=== PATIENT | female | born 1960 | race Caucasian/White ===

== ENCOUNTER 2016-07-05 09:10 | Inpatient (IN) | payer MEDICAID, OTHER ==
[~2016-07-05] VITALS: Ht 165.1 cm; Wt 59.8 kg
[2016-07-05] MEDS ORDERED: SODIUM CHLORIDE 0.9% 1,000 ML IV ONE ×2 (09:15→11:45)
[2016-07-05 10:07] LABS: Basophils # (auto) 0 uL; Eosinophils # (auto) 0 uL; Hematocrit 41.8 % (36.0-46.0); Hemoglobin 13.8 g/dL (12.2-16.2); Lymphocytes # (auto) 1.5 uL; Lymphocytes % (auto) 7.6 % (10.0-50.0); Mean Corpuscular Hemoglobin 31.5 pg (28.0-32.0); Mean Corpuscular Volume 95.6 fL (80.0-100.0); Mean Platelet Volume 10.4 fL (7.4-10.4); Monocytes # (auto) 0.8 uL; Monocytes % (auto) 4.3 % (0.0-12.0); Neutrophils % (auto) 88.1 % (37.0-80.0); Platelet Count (auto) 185 10^3/uL (140-450); Red Cell Distribution Width 17.5 % (11.6-16.0); White Blood Cell 19.3 10^3/uL (4.4-10.8)
[2016-07-05 10:19] LABS: INR 0.94 (0.9-1.15); Partial Thromboplastin Time 25.5 sec (22.64-33.71); Prothrombin Time 10.2 sec (9.37-12.3)
[2016-07-05 10:33] LABS: Urine Bilirubin Negative (Negative); Urine Blood TRACE /uL (Negative); Urine Color Yellow (Yellow); Urine Hyaline Cast MANY /lpf (0 - 2); Urine Ketone Negative (Negative); Urine Nitrite Negative (Negative); Urine RBC <1 /hpf (0 - 4); Urine Squamous Epithelial Cell FEW /hpf (<5); Urine Urobilinogen Normal (Negative)
[2016-07-05 10:39] LABS: Urine Glucose 1+ mg/dL (Normal)
[2016-07-05 10:42] LABS: Albumin 3.4 g/dL (3.4-5.0); Alkaline Phosphatase 114 U/L (45-117); Aspartate Aminotransferase 44 U/L (15-37); BUN/Creatinine Ratio 8.5; Bilirubin, Total 0.4 mg/dL (0.2-1.0); Blood Urea Nitrogen 6 mg/dL (7-18); Calcium 8.1 mg/dL (8.5-10.1); Carbon Dioxide 25 mmol/L (21-32); GFR African American 110 mL/min; GFR Non-African American 91 mL/min; Glucose 151 mg/dL (74-106)
[2016-07-05 11:16] LABS: Anion Gap 8 (5-15); Chloride 105 mmol/L (98-107); Potassium 3.4 mmol/L (3.5-5.1); Sodium 138 mmol/L (136-145)
[2016-07-05] MEDS ORDERED: AZITHROMYCIN 500MG/D5W 250ML 250 ML IV ONE (11:45)
[2016-07-05] MEDS ORDERED: cefTRIAXone 1GM/50ML D5W 50 ML IV ONE (11:45)
[2016-07-05 12:38] LABS: B-Type Natriuretic Peptide 220.09 pg/mL (0-100); Temperature: 23.1 C (20.0-25.0)
[2016-07-05] MEDS ORDERED: LORazepam 2MG/ML-1ML VIAL IV ONE (13:15)
[2016-07-05] MEDS ORDERED: CHOL20006 PO (13:29)
[2016-07-05] MEDS ORDERED: METH500T6 PO (13:29)
[2016-07-05] MEDS ORDERED: METO25TA62 PO (13:29)
[2016-07-05] MEDS ORDERED: LOR05T PO (13:29)
[2016-07-05] MEDS ORDERED: ATOR40TA52 PO (13:29)
[2016-07-05] MEDS ORDERED: MORPHINE SULF INJ 2 MG/ML SYRINGE 1ML IV PRN (14:15)
[2016-07-05] MEDS ORDERED: NITROGLYCERIN 0.4 MG SL TAB SL PRN (14:15)
[2016-07-05] MEDS ORDERED: LORazepam 2MG/ML-1ML VIAL IV PRN ×2 (14:15→18:15)
[2016-07-05] MEDS: SODIUM CHLORIDE 0.9% 1,000 ML IV SCH ×2 (14:23→22:19)
[2016-07-05] MEDS ORDERED: THIAMINE HCL 100 MG/ML 2ML VIAL IV ONE (14:30)
[2016-07-05] MEDS ORDERED: FOLIC ACID 1 MG in D5W 5% 50 ML INJ ONE (14:45)
[2016-07-05 20:40] VITALS: BP 128/58
[2016-07-05 22:02] VITALS: BP 116/76
[2016-07-05] MEDS: METOPROLOL TARTRATE 25 MG TAB PO SCH (22:15)
[2016-07-06 05:04] VITALS: BP 101/68
[2016-07-06 06:05] LABS: Basophils # (auto) 0 uL; Basophils % (auto) 0.2 % (0.0-2.0); Eosinophils # (auto) 0 uL; Eosinophils % (auto) 0.1 % (0.0-7.0); Hematocrit 35.6 % (36.0-46.0); Hemoglobin 11.6 g/dL (12.2-16.2); Lymphocytes # (auto) 2.2 uL; Lymphocytes % (auto) 21.3 % (10.0-50.0); Mean Corpuscular Hemoglobin 31.4 pg (28.0-32.0); Mean Corpuscular Hgb Conc. 32.7 g/dL (32.0-36.0); Mean Platelet Volume 10.9 fL (7.4-10.4); Monocytes # (auto) 0.6 uL; Monocytes % (auto) 6.1 % (0.0-12.0); Neutrophils # (auto) 7.5 uL; Neutrophils % (auto) 72.3 % (37.0-80.0); Platelet Count (auto) 145 10^3/uL (140-450); Red Cell Distribution Width 16.4 % (11.6-16.0); White Blood Cell 10.4 10^3/uL (4.4-10.8)
[2016-07-06 06:20] LABS: BUN/Creatinine Ratio 7.3; Calcium 7.8 mg/dL (8.5-10.1); Potassium 3.3 mmol/L (3.5-5.1)
[2016-07-06 08:54] VITALS: BP 103/70
[2016-07-06] MEDS: cefTRIAXone 1GM/50ML D5W 50 ML IV SCH (09:18)
[2016-07-06] MEDS: METOPROLOL TARTRATE 25 MG TAB PO SCH ×2 (09:49→21:40)
[2016-07-06] MEDS ORDERED: FOLIC ACID 1 MG in D5W 5% 50 ML IV SCH (10:00)
[2016-07-06] MEDS: THIAMINE HCL 100 MG/ML 2ML VIAL IV SCH (10:39)
[2016-07-06] MEDS: AZITHROMYCIN 500MG/D5W 250ML 250 ML IV SCH (11:26)
[2016-07-06 12:41] VITALS: BP 129/84
[2016-07-06] MEDS: FOLIC ACID 1 MG in D5W 5% 50 ML INJ SCH (12:52)
[2016-07-06] MEDS ORDERED: POTASSIUM CHL 20 Meq TABLET PO ONE (15:15)
[2016-07-06 17:00] VITALS: BP 143/92
[2016-07-06] MEDS: SODIUM CHLORIDE 0.9% 1,000 ML IV SCH (17:28)
[2016-07-06 23:04] VITALS: BP 145/91
[2016-07-07 05:23] VITALS: BP 135/88
[2016-07-07 06:02] LABS: Basophils # (auto) 0 uL; Basophils % (auto) 0.3 % (0.0-2.0); Eosinophils # (auto) 0 uL; Eosinophils % (auto) 0.3 % (0.0-7.0); Hematocrit 36.5 % (36.0-46.0); Hemoglobin 12.2 g/dL (12.2-16.2); Lymphocytes # (auto) 2.3 uL; Lymphocytes % (auto) 25.7 % (10.0-50.0); Mean Corpuscular Hemoglobin 31.4 pg (28.0-32.0); Mean Corpuscular Hgb Conc. 33.3 g/dL (32.0-36.0); Mean Corpuscular Volume 94.2 fL (80.0-100.0); Mean Platelet Volume 10.6 fL (7.4-10.4); Monocytes # (auto) 0.7 uL; Monocytes % (auto) 7.9 % (0.0-12.0); Neutrophils # (auto) 5.9 uL; Neutrophils % (auto) 65.8 % (37.0-80.0); Platelet Count (auto) 153 10^3/uL (140-450); Red Cell Distribution Width 16.7 % (11.6-16.0)
[2016-07-07] MEDS: SODIUM CHLORIDE 0.9% 1,000 ML IV SCH ×2 (06:15→14:15)
[2016-07-07 06:35] LABS: BUN/Creatinine Ratio 9.6; Calcium 8.4 mg/dL (8.5-10.1); Magnesium 2.1 mg/dL (1.6-2.6); Potassium 3.3 mmol/L (3.5-5.1)
[2016-07-07 08:00] VITALS: BP 138/83
[2016-07-07] MEDS: cefTRIAXone 1GM/50ML D5W 50 ML IV SCH (09:00)
[2016-07-07] MEDS: AZITHROMYCIN 500MG/D5W 250ML 250 ML IV SCH (10:00)
[2016-07-07] MEDS: METOPROLOL TARTRATE 25 MG TAB PO SCH ×2 (11:25→21:43)
[2016-07-07] MEDS: THIAMINE HCL 100 MG/ML 2ML VIAL IV SCH (11:25)
[2016-07-07] MEDS: FOLIC ACID 1 MG in D5W 5% 50 ML INJ SCH (12:00)
[2016-07-07] MEDS ORDERED: POTASSIUM CHL 20 Meq TABLET PO ONE (13:30)
[2016-07-07] MEDS ORDERED: SACC250C PO (13:43)
[2016-07-07] MEDS ORDERED: LEVO750T3 PO (13:43)
[2016-07-07] MEDS ORDERED: ASPirin 81 mg TAB PO ONE (14:15)
[2016-07-07] MEDS ORDERED: PHENYTOIN IV DILANTIN 1,000 MG in SODIUM CHL 0.9% 250 ML IV ONE (20:30)
[2016-07-07] MEDS: ATORVASTATIN 20 MG TAB PO SCH (21:42)
[2016-07-07] MEDS: PHENYTOIN SODIUM 100 MG CAP PO SCH (21:42)
[2016-07-07 22:00] VITALS: BP 126/83
[2016-07-07] MEDS ORDERED: ATORVASTATIN 20 MG TAB PO SCH (22:00)
[2016-07-08] VITALS (8 sets, daily range): BP systolic 103–124; BP diastolic 64–75
[2016-07-08] MEDS: SODIUM CHLORIDE 0.9% 1,000 ML IV SCH (06:13)
[2016-07-08] MEDS: cefTRIAXone 1GM/50ML D5W 50 ML IV SCH (09:52)
[2016-07-08] MEDS: AZITHROMYCIN 500MG/D5W 250ML 250 ML IV SCH (10:00)
[2016-07-08] MEDS: FOLIC ACID 1 MG in D5W 5% 50 ML INJ SCH (12:00)
[2016-07-08] MEDS: METOPROLOL TARTRATE 25 MG TAB PO SCH ×2 (14:20→21:31)
[2016-07-08] MEDS: THIAMINE HCL 100 MG/ML 2ML VIAL IV SCH (14:20)
[2016-07-08] MEDS: ASPirin 81 mg TAB PO SCH (14:20)
[2016-07-08] MEDS: ATORVASTATIN 20 MG TAB PO SCH (21:26)
[2016-07-08] MEDS: PHENYTOIN SODIUM 100 MG CAP PO SCH (21:26)
[2016-07-09 08:00] VITALS: BP 99/63
[2016-07-09] MEDS: AZITHROMYCIN 500MG/D5W 250ML 250 ML IV SCH (10:00)
[2016-07-09] MEDS: THIAMINE HCL 100 MG/ML 2ML VIAL IV SCH (10:45)
[2016-07-09] MEDS: cefTRIAXone 1GM/50ML D5W 50 ML IV SCH (10:46)
[2016-07-09] MEDS: ASPirin 81 mg TAB PO SCH (10:47)
[2016-07-09] MEDS: METOPROLOL TARTRATE 25 MG TAB PO SCH (10:47)
[2016-07-09] MEDS: FOLIC ACID 1 MG in D5W 5% 50 ML INJ SCH (11:53)
[2016-07-09] MEDS ORDERED: ATOR40TA52 PO (12:25)
[2016-07-09] MEDS ORDERED: ASPI81CH43 PO (12:25)
[2016-07-09] MEDS ORDERED: PHE100C PO (12:25)
[2016-07-09] MEDS ORDERED: POTASSIUM CHL 20 Meq TABLET PO ONE (12:30)
[2016-07-09 12:50] VITALS: BP 99/63
[2016-07-09 12:58] VITALS: BP 99/63
== END 2016-07-09 13:45 | disposition home health service (06) | DRG 720 ==
LOC: ER 09:10 → TELE 09:11 → TELE-WESTW 20:40
PROVIDERS: ADMIT Internal Medicine; ATTEND Internal Medicine
DX: A41.9 Sepsis, unspecified organism (principal); I63.9 Cerebral infarction, unspecified; G92 Toxic encephalopathy; F10.231 Alcohol dependence with withdrawal delirium; J18.1 Lobar pneumonia, unspecified organism; G40.909 Epilepsy, unspecified, not intractable, without status epilepticus; E78.5 Hyperlipidemia, unspecified; E87.6 Hypokalemia; I10 Essential (primary) hypertension; F17.210 Nicotine dependence, cigarettes, uncomplicated; F41.9 Anxiety disorder, unspecified; Z88.8 Allergy status to other drugs, medicaments and biological substances
CPT/HCPCS: 36415; 51702; 70450; 70551; 71010; 80048; 80053; 80061; 80185; 80307; 80320; 81001; 83605; 83735; 83880; 84132; 84484; 85025; 85610; 85730; 87040; 93005; 93306; 93886; 95819; 96361; 96365; 96367; 96375; J0696; J7060

== ENCOUNTER 2017-05-09 10:46 | Inpatient (IN) | payer MEDICAID ==
[~2017-05-09] VITALS: Ht 157.5 cm; Wt 69.5 kg
[~2017-05-09 10:46] MED LIST: ASPI81CH43 PO; ATOR40TA52 PO; CHOL20006 PO; LEVO750T2 PO; LORA-654 PO; METH500T6 PO; METO25TA62 PO; PHE100C PO; SACC250C PO
[2017-05-09] MEDS ORDERED: SODIUM CHLORIDE 0.9% 1,000 ML IVB ONE (10:56)
[2017-05-09 11:23] LABS: Basophils # (auto) 0.1 uL; Eosinophils # (auto) 0 uL; Eosinophils % (auto) 0.1 % (0.0-7.0); Hemoglobin 15.4 g/dL (12.2-16.2); Mean Corpuscular Volume 101.9 fL (80.0-100.0); Monocytes # (auto) 0.5 uL
[2017-05-09 11:24] LABS: Basophils % (auto) 0.4 % (0.0-2.0); Hematocrit 45.8 % (36.0-46.0); Lymphocytes # (auto) 1.9 uL; Mean Corpuscular Hemoglobin 34.2 pg (28.0-32.0); Mean Corpuscular Hgb Conc. 33.6 g/dL (32.0-36.0); Monocytes % (auto) 3.7 % (0.0-12.0); Neutrophils % (auto) 81.8 % (37.0-80.0); Nucleated Red Blood Cells % 0.1 %; Platelet Count (auto) 130 10^3/uL (140-450); Red Cell Distribution Width 13.7 % (11.8-14.3); White Blood Cell 13.4 10^3/uL (4.4-10.8)
[2017-05-09 11:43] LABS: Alanine Aminotransferase 19 U/L (13-56); Albumin 4.2 g/dL (3.4-5.0); Alkaline Phosphatase 87 U/L (45-117); Anion Gap 15 (5-15); Aspartate Aminotransferase 19 U/L (15-37); BUN/Creatinine Ratio 11.6; Bilirubin, Total 0.5 mg/dL (0.2-1.0); Blood Alcohol < 3.0 mg/dL (0-5); Blood Urea Nitrogen 10 mg/dL (7-18); Calcium 8.4 mg/dL (8.5-10.1); Carbon Dioxide 17 mmol/L (21-32); Chloride 103 mmol/L (98-107); GFR African American 88 mL/min; GFR Non-African American 73 mL/min; Glucose 146 mg/dL (74-106); Potassium 3.6 mmol/L (3.5-5.1); Sodium 135 mmol/L (136-145); Total Protein 8.2 g/dL (6.4-8.2)
[2017-05-09 12:55] LABS: Urine Bacteria NONE SEEN /hpf (None Seen); Urine Blood Negative /uL (Negative); Urine Mucus FEW (None Seen); Urine Specific Gravity 1.013 (1.001-1.035); Urine WBC 1 /hpf (0 - 5)
[2017-05-09 13:22] LABS: Barbiturate Scree,Urine NEGATIVE (NEGATIVE)
[2017-05-09] MEDS ORDERED: NAPR-476 PO (13:24)
[2017-05-09] MEDS ORDERED: KEP500T PO (13:24)
[2017-05-09 13:36] LABS: Alcohol, Urine < 3.0 mg/dL (0-5); Amphetamine Screen, Urine NEGATIVE (NEGATIVE); Benzodiazephine Screen, Urine POSITIVE (NEGATIVE); Cannabinoid Screen, Urine POSITIVE (NEGATIVE); Cocaine Screen, Urine NEGATIVE (NEGATIVE); Opiate Scree,Urine NEGATIVE (NEGATIVE); Phencyclidine Screen, Urine NEGATIVE (NEGATIVE)
[2017-05-09] MEDS ORDERED: DOCUSATE SOD 100 MG CAP PO PRN (14:45)
[2017-05-09] MEDS ORDERED: LORazepam 2MG/ML-1ML VIAL IV PRN (14:45)
[2017-05-09] MEDS ORDERED: METHOCARBAMOL 500 MG TAB PO PRN (14:45)
[2017-05-09] MEDS ORDERED: ACETAMINOPHEN 325 MG TAB PO PRN (14:45)
[2017-05-09] MEDS ORDERED: ONDANSETRON HCL 4 MG/2 ML VIAL IV PRN (14:45)
[2017-05-09] MEDS ORDERED: LEVETIRACETAM INJ 500 MG in D5W 5% 100 ML IV ONE (14:45)
[2017-05-09] MEDS ORDERED: NITROGLYCERIN 0.4 MG SL TAB SL PRN (14:45)
[2017-05-09] MEDS ORDERED: cefTRIAXone 1GM/10ml IVPUSH 10 ML IV ONE (14:45)
[2017-05-09] MEDS ORDERED: MORPHINE SULFATE 4 MG/ML SYR/VIAL IV PRN (14:45)
[2017-05-09] MEDS ORDERED: HYDROcodone-ACET 5/325MG TAB PO PRN (14:45)
[2017-05-09] MEDS ORDERED: DEXTROSE (50%) 50ML SYRG IV PRN (15:00)
[2017-05-09] MEDS: SODIUM CHLORIDE 0.9% 1,000 ML IV SCH (15:40)
[2017-05-09] MEDS: ACCU-CHEK COMFORT CURVE STRIP VI SCH ×2 (16:28→22:20)
[2017-05-09] MEDS: InsuLIN REG 1unit/0.01ml Soln (100units/ml) SC SCH ×2 (16:28→22:00)
[2017-05-09] MEDS: ATORVASTATIN 20 MG TAB PO SCH (22:00)
[2017-05-09] MEDS: PHENYTOIN SODIUM 100 MG CAP PO SCH (22:00)
[2017-05-09] MEDS: FAMOTIDINE 20 MG TAB PO SCH (22:00)
[2017-05-09] MEDS: LEVETIRACETAM 500 MG TAB PO SCH (22:00)
[2017-05-09] MEDS: NAPROXEN 500 MG TAB PO SCH (22:00)
[2017-05-10] MEDS: SODIUM CHLORIDE 0.9% 1,000 ML IV SCH (04:26)
[2017-05-10] MEDS: PHENYTOIN SODIUM 100 MG CAP PO SCH ×3 (05:55→22:02)
[2017-05-10] MEDS: ACCU-CHEK COMFORT CURVE STRIP VI SCH ×4 (06:55→21:50)
[2017-05-10] MEDS: InsuLIN REG 1unit/0.01ml Soln (100units/ml) SC SCH ×4 (06:56→21:50)
[2017-05-10 07:03] LABS: Albumin 3.3 g/dL (3.4-5.0); BUN/Creatinine Ratio 13.6; Bilirubin, Total 0.8 mg/dL (0.2-1.0); Calcium 8.2 mg/dL (8.5-10.1); Potassium 3.7 mmol/L (3.5-5.1); Total Protein 6.7 g/dL (6.4-8.2)
[2017-05-10 07:06] LABS: Eosinophils # (auto) 0 uL; Hemoglobin 14.7 g/dL (12.2-16.2); Lymphocytes # (auto) 1.9 uL; Mean Corpuscular Hgb Conc. 34.9 g/dL (32.0-36.0); Monocytes # (auto) 0.7 uL
[2017-05-10 07:10] LABS: Basophils # (auto) 0 uL; Basophils % (auto) 0.4 % (0.0-2.0); Eosinophils % (auto) 0.3 % (0.0-7.0); Lymphocytes % (auto) 22.2 % (10.0-50.0); Mean Corpuscular Hemoglobin 34.6 pg (28.0-32.0); Mean Corpuscular Volume 99.2 fL (80.0-100.0); Monocytes % (auto) 8.5 % (0.0-12.0); Neutrophils # (auto) 5.8 uL; Neutrophils % (auto) 68.6 % (37.0-80.0); Nucleated Red Blood Cells % 0.2 %; Platelet Count (auto) 114 10^3/uL (140-450); Red Blood Cells 4.24 10^6/uL (4.0-5.20); Red Cell Distribution Width 13.7 % (11.8-14.3); White Blood Cell 8.5 10^3/uL (4.4-10.8)
[2017-05-10] MEDS: cefTRIAXone 1GM/10ml IVPUSH 10 ML IV SCH (08:35)
[2017-05-10] MEDS: ASPirin-EC 81 mg tab PO SCH (09:31)
[2017-05-10] MEDS: LEVETIRACETAM 500 MG TAB PO SCH ×2 (09:31→22:02)
[2017-05-10] MEDS: MULTIPLE VITAMIN TAB PO SCH (09:32)
[2017-05-10] MEDS: FAMOTIDINE 20 MG TAB PO SCH ×2 (09:33→22:02)
[2017-05-10] MEDS: NAPROXEN 500 MG TAB PO SCH ×2 (09:33→22:02)
[2017-05-10] MEDS: METOPROLOL SUCCINATE XL 50 MG TAB PO SCH (09:34)
[2017-05-10 21:30] VITALS: BP 146/92
[2017-05-10] MEDS: ATORVASTATIN 20 MG TAB PO SCH (22:02)
[2017-05-10] MEDS: THIAMINE INJ 100 MG, MULTIPLE VITAMIN 10 ML, FOLIC ACID 1 MG, MAGNESIUM SULF SDV 50% 8 ... IV SCH ×5 (22:03)
[2017-05-10 22:22] VITALS: BP 146/92
[2017-05-11] MEDS: SODIUM CHLORIDE 0.9% 1,000 ML IV SCH ×2 (02:00→16:43)
[2017-05-11 05:12] VITALS: BP 112/78
[2017-05-11] MEDS ORDERED: PNEUMOCOCCAL VACC POLYS 25 MCG/0.5 ML VIAL IM ONE (06:00)
[2017-05-11] MEDS ORDERED: INFLUENZA QUAD 2017-2018 0.5 ML SYRG IM ONE (06:00)
[2017-05-11] MEDS: InsuLIN REG 1unit/0.01ml Soln (100units/ml) SC SCH ×4 (06:45→22:00)
[2017-05-11] MEDS: ACCU-CHEK COMFORT CURVE STRIP VI SCH ×4 (06:45→22:00)
[2017-05-11] MEDS: PHENYTOIN SODIUM 100 MG CAP PO SCH ×3 (06:45→22:40)
[2017-05-11 07:48] LABS: Calcium 8.6 mg/dL (8.5-10.1)
[2017-05-11 07:52] LABS: BUN/Creatinine Ratio 9.8
[2017-05-11 08:31] VITALS: BP 162/86
[2017-05-11 08:37] LABS: Basophils # (auto) 0 uL; Eosinophils # (auto) 0.2 uL; Hemoglobin 15.1 g/dL (12.2-16.2); Lymphocytes # (auto) 1.7 uL; Mean Corpuscular Hemoglobin 34.6 pg (28.0-32.0)
[2017-05-11 08:38] LABS: Basophils % (auto) 0.7 % (0.0-2.0); Hematocrit 43.6 % (36.0-46.0); Mean Corpuscular Hgb Conc. 34.6 g/dL (32.0-36.0); Mean Corpuscular Volume 99.9 fL (80.0-100.0); Monocytes # (auto) 0.5 uL; Monocytes % (auto) 6.6 % (0.0-12.0); Neutrophils # (auto) 4.9 uL; Neutrophils % (auto) 66.7 % (37.0-80.0); Nucleated Red Blood Cells % 0.1 %; Platelet Count (auto) 107 10^3/uL (140-450); Red Blood Cells 4.37 10^6/uL (4.0-5.20); Red Cell Distribution Width 13.3 % (11.8-14.3); White Blood Cell 7.3 10^3/uL (4.4-10.8)
[2017-05-11] MEDS: ASPirin-EC 81 mg tab PO SCH (09:28)
[2017-05-11] MEDS: FAMOTIDINE 20 MG TAB PO SCH ×2 (09:28→22:42)
[2017-05-11] MEDS: cefTRIAXone 1GM/10ml IVPUSH 10 ML IV SCH (09:28)
[2017-05-11] MEDS: NAPROXEN 500 MG TAB PO SCH ×2 (09:29→22:42)
[2017-05-11] MEDS: LEVETIRACETAM 500 MG TAB PO SCH ×2 (09:29→22:41)
[2017-05-11] MEDS: MULTIPLE VITAMIN TAB PO SCH (09:29)
[2017-05-11] MEDS: METOPROLOL SUCCINATE XL 50 MG TAB PO SCH (09:30)
[2017-05-11] MEDS ORDERED: PHE100C PO (10:37)
[2017-05-11] MEDS ORDERED: KEP500T PO (10:37)
[2017-05-11 12:22] VITALS: BP 161/90
[2017-05-11 16:34] VITALS: BP 162/91
[2017-05-11 21:53] VITALS: BP 153/89
[2017-05-11] MEDS: THIAMINE INJ 100 MG, MULTIPLE VITAMIN 10 ML, FOLIC ACID 1 MG, MAGNESIUM SULF SDV 50% 8 ... IV SCH ×5 (22:40)
[2017-05-11] MEDS: ATORVASTATIN 20 MG TAB PO SCH (22:41)
[2017-05-12 04:35] VITALS: BP 127/72
[2017-05-12] MEDS: InsuLIN REG 1unit/0.01ml Soln (100units/ml) SC SCH ×2 (06:37→11:30)
[2017-05-12] MEDS: ACCU-CHEK COMFORT CURVE STRIP VI SCH ×2 (06:37→11:30)
[2017-05-12] MEDS: PHENYTOIN SODIUM 100 MG CAP PO SCH (06:38)
[2017-05-12 06:56] LABS: Basophils # (auto) 0 uL; Basophils % (auto) 0.5 % (0.0-2.0); Eosinophils # (auto) 0.3 uL; Lymphocytes # (auto) 1.1 uL; Monocytes # (auto) 0.6 uL; Neutrophils # (auto) 5.4 uL; Nucleated Red Blood Cells % 0.1 %; Red Blood Cells 4.04 10^6/uL (4.0-5.20); White Blood Cell 7.4 10^3/uL (4.4-10.8)
[2017-05-12 07:00] LABS: Eosinophils % (auto) 3.8 % (0.0-7.0); Hematocrit 39.4 % (36.0-46.0); Hemoglobin 14.2 g/dL (12.2-16.2); Lymphocytes % (auto) 15.3 % (10.0-50.0); Mean Corpuscular Hemoglobin 35.1 pg (28.0-32.0); Mean Corpuscular Hgb Conc. 35.9 g/dL (32.0-36.0); Mean Corpuscular Volume 97.5 fL (80.0-100.0); Neutrophils % (auto) 72.4 % (37.0-80.0); Platelet Count (auto) 104 10^3/uL (140-450); Red Cell Distribution Width 13.5 % (11.8-14.3)
[2017-05-12 07:13] LABS: BUN/Creatinine Ratio 12.2; Calcium 8.2 mg/dL (8.5-10.1); Potassium 3.6 mmol/L (3.5-5.1)
[2017-05-12 09:01] VITALS: BP 116/72
[2017-05-12] MEDS: cefTRIAXone 1GM/10ml IVPUSH 10 ML IV SCH (10:27)
[2017-05-12] MEDS: NAPROXEN 500 MG TAB PO SCH (10:28)
[2017-05-12] MEDS: MULTIPLE VITAMIN TAB PO SCH (10:28)
[2017-05-12] MEDS: LEVETIRACETAM 500 MG TAB PO SCH (10:28)
[2017-05-12] MEDS: ASPirin-EC 81 mg tab PO SCH (10:28)
[2017-05-12] MEDS: FAMOTIDINE 20 MG TAB PO SCH (10:28)
[2017-05-12] MEDS: SODIUM CHLORIDE 0.9% 1,000 ML IV SCH (10:29)
[2017-05-12] MEDS: METOPROLOL SUCCINATE XL 50 MG TAB PO SCH (10:31)
[2017-05-12 12:09] VITALS: BP 116/72
[2017-05-12 13:00] VITALS: BP 122/80
== END 2017-05-12 14:45 | disposition home or self-care (01) | DRG 53 ==
LOC: ER 10:46 → EDBD 10:46 → TELE 10:47 → TELE-EAST 05-10 21:14 → EAST 05-12 05:23
PROVIDERS: ADMIT Internal Medicine; ATTEND Internal Medicine
DX: G40.401 Other generalized epilepsy and epileptic syndromes, not intractable, with status epilepticus (principal); E44.1 Mild protein-calorie malnutrition; I67.2 Cerebral atherosclerosis; E87.1 Hypo-osmolality and hyponatremia; F17.210 Nicotine dependence, cigarettes, uncomplicated; E83.51 Hypocalcemia; F41.9 Anxiety disorder, unspecified; I10 Essential (primary) hypertension; Z68.28 Body mass index [BMI] 28.0-28.9, adult; I69.351 Hemiplegia and hemiparesis following cerebral infarction affecting right dominant side; Z79.82 Long term (current) use of aspirin; Z79.899 Other long term (current) drug therapy; Z91.14 Patient's other noncompliance with medication regimen; Z91.018 Allergy to other foods; Z23 Encounter for immunization
CPT/HCPCS: 36415; 51702; 70450; 71045; 80048; 80053; 80185; 80307; 80320; 81001; 82962; 83036; 85025; 87040; 87086; 92610; 93005; 93306; 93886; 95819; 96361; 96365; 96375; J7060